=== PATIENT | female | born 1985 | race American Indian/Alaskan Native ===

== ENCOUNTER 2017-08-10 20:23 | Emergency (ER) | payer MEDICAID ==
[2017-08-10 21:43] LABS: BUN/Creatinine Ratio 14; Blood Urea Nitrogen 13 mg/dL (7-17); Calcium 9.4 mg/dL (8.4-10.2); Hemolysis Index 5
[2017-08-10 21:45] LABS: Hematocrit 40.9 % (30.3-42.9); Mean Corpuscular HGB Conc 32 % (30-34); Mean Corpuscular Hemoglobin 27 pg (28-32); Mean Corpuscular Volume 83 fl (79-97); Platelet Count 275 K/mm3 (140-440); Red Blood Count 4.91 M/mm3 (3.65-5.03); Red Cell Distribution Width 14.5 % (13.2-15.2)
[2017-08-11 00:10] LABS: Bilirubin,Urine NEG (Negative); Blood,Urine NEG (Negative); Color,Urine Yellow (Yellow); Mucus,Urine FEW /HPF; Protein,Urine <15 mg/dL mg/dL (Negative)
[2017-08-11 00:14] LABS: HCG Qualitative,Urine Negative (Negative)
--- NOTE | 2017-08-11 01:08 | XRay Report ---
FINAL REPORT PROCEDURE: XR CHEST ROUTINE 2V TECHNIQUE: PA and lateral chest radiographs were obtained. CPT 97916 HISTORY: Shortness of breath. COMPARISON: No prior studies are available for comparison. FINDINGS: Heart: Normal. Mediastinum/Vessels: Left hilum is prominent. Lungs/Pleural space: Normal. Bony thorax: No acute osseous abnormality. Other: IMPRESSION: No radiographic evidence of acute cardiopulmonary disease. Left hilar prominence likely related to patient rotation. Consider attention on followup radiograph or even chest CT if there is continued clinical concern for process such as adenopathy.
--- NOTE | 2017-08-11 01:40 | Emergency Department Report ---
ED Dizziness HPI - General Chief Complaint: Dizziness Stated Complaint: DIZZINESS Time Seen by Provider: 08/11/17 01:33 Source: patient Mode of arrival: Ambulatory Limitations: No Limitations - History of Present Illness Initial Comments: 31-year-old female past medical history obesity presents with complaint of concern for high blood pressure and headache with episode of slight dizziness earlier today which lasted for a few seconds. Patient is awake alert and oriented 3 not in acute distress currently. Denies any chest pain palpitations shortness of breath abdominal pain and blurry vision and headache. Denies any fevers chills photophobia and phonophobia or rigidity abdominal pain nausea vomiting dysuria hematuria or increased urinary frequency. Patient is fully lucid and ambulatory. States that she had a high blood pressure in her [facility] office last week was told to follow-up. Patient denies any recent head or neck trauma. Visibly moving all 4 extremities without any difficulty. Denies any chest pain and pleuritic chest pain or presyncopal episodes. Denies any earache or tinnitus or decreased hearing. pt is asymptomatic at the time of my examination MD Complaint: dizziness, lightheadedness -: This afternoon Timing: gradual onset Description: lightheadedness History of Same: No History of Trauma: No Severity: mild Improves With: nothing Worsens With: nothing Associated Symptoms: denies other symptoms - Related Data Allergies Allergy/AdvReac Type Severity Reaction Status Date / Time No Known Allergies Allergy Unverified 08/10/17 20:38 ED Review of Systems ROS: Stated complaint: DIZZINESS Other details as noted in HPI Constitutional: denies: chills, fever Eyes: denies: eye pain, eye discharge, vision change ENT: denies: ear pain, throat pain Respiratory: denies: cough, shortness of breath, wheezing Cardiovascular: denies: chest pain, palpitations Endocrine: no symptoms reported Gastrointestinal: denies: abdominal pain, nausea, diarrhea Genitourinary: denies: urgency, dysuria, discharge Musculoskeletal: denies: back pain, joint swelling, arthralgia Skin: denies: rash, lesions Neurological: denies: headache, weakness, paresthesias Psychiatric: denies: anxiety, depression Hematological/Lymphatic: denies: easy bleeding, easy bruising ED Past Medical Hx - Past Medical History Previous Medical History?: No - Surgical History Additional Surgical History: tonsillectomy - Social History Smoking Status: Never Smoker Substance Use Type: Alcohol ED Physical Exam - General Limitations: No Limitations General appearance: alert, in no apparent distress - Head Head exam: Present: atraumatic, normocephalic - Eye Eye exam: Present: normal appearance, PERRL, EOMI Pupils: Present: normal accommodation - ENT ENT exam: Present: mucous membranes moist - Neck Neck exam: Present: normal inspection - Respiratory Respiratory exam: Present: normal lung sounds bilaterally. Absent: respiratory distress - Cardiovascular Cardiovascular Exam: Present: regular rate, normal rhythm. Absent: systolic murmur, diastolic murmur, rubs, gallop - GI/Abdominal GI/Abdominal exam: Present: soft, normal bowel sounds - Extremities Exam Extremities exam: Present: normal inspection - Back Exam Back exam: Present: normal inspection - Neurological Exam Neurological exam: Present: alert, oriented X3, CN II-XII intact, normal gait - Expanded Neurological Exam Expanded Patient oriented to: Present: person, place, time Cranial nerves: EOM's Intact: Normal, Facial Sensation: Normal Cerebellar function: Finger to Nose: Normal, Heel to Garza: Normal, Romberg: Normal Sensory exam: Upper Extremity Light Touch: Normal, Lower Extremity Light Touch: Normal Motor strength exam: RUE: 5, LUE: 5, RLE: 5, LLE: 5 Best Eye Response ([place]): (4) open spontaneously Best Motor Response (Vijay): (6) obeys commands Best Verbal Response (Vijay): (5) oriented Vijay Total: 15 - Psychiatric Psychiatric exam: Present: normal affect, normal mood - Skin Skin exam: Present: warm, dry, intact, normal color. Absent: rash ED Course Vital Signs 08/10/17 08/10/17 08/11/17 20:34 23:27 03:16 Temperature 98.9 F Pulse Rate 108 H 77 82 Respiratory 20 16 Rate Blood Pressure 171/103 Blood Pressure 130/70 117/72 [Left] O2 Sat by Pulse 99 99 Oximetry ED Medical Decision Making - Lab Data Result diagrams: 08/10/17 21:01 08/10/17 21:01 - Medical Decision Making A/P: Dizziness, concern for hypertension 1-pt has no neurological deficits on exam. Vital signs are stable. She has normal blood pressure 3 2-labs unremarkable. CT head unremarkable, negative. 3-d-dimer negative. Troponin negative 2. Heart score 0 points Low Score (0-3 points) Risk of MACE of 0.9-1.7%. 4-I advised patient to follow up with her primary care doctor. Patient states that she does not have consistent primary care I will refer her to one. Patient is not clinically dizzy when I examine her. No urinary symptoms no abdominal pain no chest pain reported at this time. 5- I advised patient she should monitor her blood pressure at home. Critical care attestation.: If time is entered above; I have spent that time in minutes in the direct care of this critically ill patient, excluding procedure time. ED Disposition Clinical Impression: Dizziness Disposition: DC-01 TO HOME OR SELFCARE Is pt being admited?: No Does the pt Need Aspirin: No Condition: Stable Instructions: Dizziness (ED) Referrals: KATHLEEN HERRERA MD [Staff Physician] - 3-5 Days [facility] [Provider Group] - 3-5 Days Forms: Work/School Release Form(ED) Time of Disposition: 03:55
[2017-08-11 03:16] VITALS: BP 117/72
--- NOTE | 2017-08-11 04:42 | Cat Scan Report ---
FINAL REPORT PROCEDURE: CT HEAD/BRAIN WO CON TECHNIQUE: Computerized tomography of the head was performed without contrast material. HISTORY: headache, dizziness COMPARISON: No prior studies are available for comparison. FINDINGS: Skull and scalp: Normal. Paranasal sinuses: Normal. Ventricles and subarachnoid spaces: Normal. Cerebrum: No evidence of hemorrhage, acute infarction or mass . Cerebellum and brainstem: No evidence of hemorrhage, acute infarction or mass. Vasculature: Normal. Comments: None. IMPRESSION: Normal Examination
== END 2017-08-11 04:17 | disposition home or self-care (01) ==
LOC: ED 20:23
DX: R42 Dizziness and giddiness (principal); Z90.89 Acquired absence of other organs
CPT/HCPCS: 36415; 70450; 71046; 80048; 81001; 81025; 84484; 84703; 85027; 85379; 93005; 93010